=== PATIENT | male | born 1960 | race Caucasian/White ===

== ENCOUNTER 2020-03-19 11:23 | Outpatient (CLI) | payer OTHER ==
[2020-03-20 08:46] LABS: HEPATITIS C ANTIBODY NON-REACTIVE (NON-REACTIVE)
== END 2020-03-19 11:24 | disposition home or self-care (01) ==
LOC: LAB.S 11:23
PROVIDERS: ATTEND Internal Medicine
DX: Z13.1 Encounter for screening for diabetes mellitus (principal); Z11.59 Encounter for screening for other viral diseases
CPT/HCPCS: 36415; 83036; 86803

== ENCOUNTER 2020-10-10 10:51 | Outpatient (CLI) | payer OTHER ==
[2020-10-10 15:14] LABS: BASOPHILS # (AUTO) 0.2 10^3/uL (0.0-0.1); EOSINOPHILS # (AUTO) 0.4 10^3/uL (0.0-0.7); EOSINOPHILS % (AUTO) 4.4 %; HCT - HEMATOCRIT 41.1 % (42.0-52.0); HGB - HEMOGLOBIN 13.8 g/dL (14.0-18.0); LYMPHOCYTES # (AUTO) 2.9 10^3/uL (1.5-3.5); LYMPHOCYTES % (AUTO) 35.6 %; MEAN CORPUSCULAR HEMOGLOBIN 31.7 pg (27.0-31.0); MEAN CORPUSCULAR HGB CONC 33.6 g/dL (32.0-36.0); MEAN CORPUSCULAR VOLUME 94.3 fL (80.0-94.0); MEAN PLATELET VOLUME 12.4 fL (7.4-11.4); MONOCYTES % (AUTO) 12.8 %; NEUTROPHILS # (AUTO) 3.7 10^3/uL (1.5-6.6); NEUTROPHILS % (AUTO) 45.1 %; PLT - PLATELET COUNT 257 10^3/uL (130-450); RED BLOOD COUNT 4.36 10^6/uL (4.70-6.10); RED CELL DISTRIBUTION WIDTH 12.8 % (12.0-15.0); WHITE BLOOD COUNT 8.1 x10^3/uL (4.8-10.8)
== END 2020-10-10 10:52 | disposition home or self-care (01) ==
LOC: LAB.S 10:51
PROVIDERS: ATTEND Internal Medicine
DX: K21.9 Gastro-esophageal reflux disease without esophagitis (principal)
CPT/HCPCS: 36415; 85025

== ENCOUNTER 2021-02-19 10:33 | Outpatient (CLI) | payer OTHER ==
[2021-02-19 15:34] LABS: CHOL/HDL RATIO 2.7 (<5.0); CHOLESTEROL 191 mg/dL; HDL CHOLESTEROL 71 mg/dL; LDL CHOLESTEROL,CALCULATED 100 mg/dL; LDL/HDL RATIO 1.4 (<3.6); TRIGLYCERIDES 98 mg/dL; VLDL CHOLESTEROL 20 mg/dL
[2021-02-19 21:04] LABS: ESTIMATED AVERAGE GLUCOSE 103 mg/dL (70-100); HEMOGLOBIN A1c% 5.2 % (4.27-6.07)
== END 2021-02-19 10:34 | disposition home or self-care (01) ==
LOC: LAB.S 10:33
PROVIDERS: ATTEND Internal Medicine
DX: Z13.1 Encounter for screening for diabetes mellitus (principal); Z13.220 Encounter for screening for lipoid disorders
CPT/HCPCS: 36415; 80061; 83036; 83721

== ENCOUNTER 2022-02-04 09:40 | Outpatient (CLI) | payer OTHER ==
[2022-02-04 14:33] LABS: BASOPHILS # (AUTO) 0.2 10^3/uL (0.0-0.1); BASOPHILS % (AUTO) 2.7 %; EOSINOPHILS # (AUTO) 0.6 10^3/uL (0.0-0.7); EOSINOPHILS % (AUTO) 9.3 %; HCT - HEMATOCRIT 43.6 % (42.0-52.0); HGB - HEMOGLOBIN 14.7 g/dL (14.0-18.0); LYMPHOCYTES # (AUTO) 2.8 10^3/uL (1.5-3.5); LYMPHOCYTES % (AUTO) 42.5 %; MEAN CORPUSCULAR HEMOGLOBIN 31.3 pg (27.0-31.0); MEAN CORPUSCULAR HGB CONC 33.7 g/dL (32.0-36.0); MEAN CORPUSCULAR VOLUME 92.8 fL (80.0-94.0); MEAN PLATELET VOLUME 12.2 fL (7.4-11.4); MONOCYTES # (AUTO) 0.9 10^3/uL (0.0-1.0); MONOCYTES % (AUTO) 12.9 %; NEUTROPHILS # (AUTO) 2.1 10^3/uL (1.5-6.6); NEUTROPHILS % (AUTO) 32.4 %; PLT - PLATELET COUNT 300 10^3/uL (130-450); RED CELL DISTRIBUTION WIDTH 12.4 % (12.0-15.0); WHITE BLOOD COUNT 6.6 x10^3/uL (4.8-10.8)
[2022-02-04 15:20] LABS: ALBUMIN 4.2 g/dL (3.2-5.5); ALBUMIN/GLOBULIN RATIO 1.4 (1.0-2.2); BILIRUBIN,TOTAL 1.1 mg/dL (0.2-1.0); CALCIUM 9.2 mg/dL (8.5-10.3); CREATININE 1.1 mg/dL (0.6-1.2); TOTAL PROTEIN 7.3 g/dL (6.7-8.2)
== END 2022-02-04 09:41 | disposition home or self-care (01) ==
LOC: LAB.S 09:40
PROVIDERS: ATTEND Internal Medicine
DX: R10.9 Unspecified abdominal pain (principal); R11.10 Vomiting, unspecified; K59.00 Constipation, unspecified; A05.9 Bacterial foodborne intoxication, unspecified
CPT/HCPCS: 36415; 80053; 83630; 85025; 87045; 87046; 87427

== ENCOUNTER 2022-02-05 08:00 | Outpatient (CLI) | payer OTHER | END 2022-02-05 23:59 | disposition home or self-care (01) | LOC: LAB.R 08:00 | PROVIDERS: ATTEND Internal Medicine | DX: A05.9 Bacterial foodborne intoxication, unspecified (principal); R10.9 Unspecified abdominal pain; R11.10 Vomiting, unspecified; K59.00 Constipation, unspecified | CPT/HCPCS: 83630 ==

== ENCOUNTER 2022-03-24 22:15 | Emergency (ER) | payer OTHER ==
[2022-03-24] MEDS ORDERED: SODIUM CHLORIDE 0.9% 1,000 ML IV STA (22:47)
[2022-03-24] MEDS ORDERED: ONDANSETRON 4 MG/2 ML VIAL IVP STA (22:47)
--- NOTE | 2022-03-24 22:50 | ED Physician Documentation ---
History of Present Illness - Stated complaint Stated Complaint: VOMIT/STOMACH PAIN - Chief complaint Chief Complaint: Abd Pain - History obtained from History obtained from: Patient - Additonal information Additional information: The patient comes to the emergency department with chief complaint of mid abdominal pain that started this afternoon. He states is just progressively worsened over the course of the evening and that he then began vomiting. The patient has a history of a traumatic splenic rupture and subsequent splenectomy, and has had a bowel obstruction once before, a few decades ago. He states he has had no further trouble with his surgical site or with obstruction since, but has not passed gas today and was wondering if he might have a bowel obstruction again. The patient did have a fairly normal bowel movement this morning. He states that he woke up feeling fine and even went to the gym and did a workout earlier in the day. No one else has been sick at home. The patient states he had a similar episode a couple of months ago and his doctor felt that this was most likely a viral illness. Patient denies any other complaints at this time. He states his pain is about a 4 out of 10 and is worse with certain movements. No urinary symptoms. No measured fevers and in fact, the patient states he measured a temperature couple of hours ago and it was 98. No respiratory symptoms. The patient is otherwise fairly healthy. Review of Systems Ten Systems: 10 systems reviewed and negative Constitutional: reports: Reviewed and negative Eyes: reports: Reviewed and negative Ears: reports: Reviewed and negative Nose: reports: Reviewed and negative Throat: reports: Reviewed and negative Cardiac: reports: Reviewed and negative Respiratory: reports: Reviewed and negative GI: reports: Abdominal Pain, Nausea, Vomiting : reports: Reviewed and negative Skin: reports: Reviewed and negative Musculoskeletal: reports: Reviewed and negative Neurologic: reports: Reviewed and negative Psychiatric: reports: Reviewed and negative Endocrine: reports: Reviewed and negative Immunocompromised: reports: Reviewed and negative PD PAST MEDICAL HISTORY - Present Medications Home Medications: Ambulatory Orders Medication Instructions Recorded Confirmed Pantoprazole [Protonix] 0 mg 03/24/22 HYDROcod/ACETAM 5/325 [[place] 5/325] 1 - 2 tablet PO Q6H PRN #14 tablet 03/25/22 Ondansetron Odt [Zofran] 4 mg TL Q6H PRN #10 tablet 03/25/22 - Allergies Allergies/Adverse Reactions: Allergies Allergy/AdvReac Type Severity Reaction Status Date / Time No Known Drug Allergies Allergy Verified 03/24/22 22:23 PD ED PE NORMAL - Vitals Vital signs reviewed: Yes - General General: Alert and oriented X 3, No acute distress, Well developed/nourished - HEENT HEENT: Atraumatic, PERRL, EOMI, Moist mucous membranes - Neck Neck: Supple, no meningeal sign - Cardiac Cardiac: RRR, No murmur, Strong equal pulses - Respiratory Respiratory: No respiratory distress, Clear bilaterally - Abdomen Abdomen: Soft, Non distended, Other (Mild mid- and lower abdominal tenderness without rebound or guarding.) - Derm Derm: Warm and dry - Extremities Extremities: No deformity - Neuro Neuro: Alert and oriented X 3 - Psych Psych: Normal mood, Normal affect Results - Vitals Vitals: Vital Signs - 24 hr 03/24/22 03/24/22 03/25/22 22:17 22:23 00:46 Temperature 36 C L 36.5 C Heart Rate 65 65 62 Respiratory 18 18 14 Rate Blood Pressure 144/84 H 144/84 H 135/81 H O2 Saturation 97 97 96 03/25/22 01:30 Temperature Heart Rate 59 L Respiratory 12 Rate Blood Pressure 122/84 H O2 Saturation 97 Oxygen O2 Source Room air - Labs Labs: Laboratory Tests 03/24/22 03/24/22 22:55 23:43 WBC 13.8 H RBC 4.63 L Hgb 14.2 Hct 41.6 L MCV 89.8 MCH 30.7 MCHC 34.1 RDW 12.5 Plt Count 259 MPV 12.0 H Neut # (Auto) Not Reportable Lymph # (Auto) Not Reportable [place] # (Auto) Not Reportable Eos # (Auto) Not Reportable Baso # (Auto) Not Reportable Absolute Nucleated RBC Not Reportable Total Counted 100 Band Neuts % (Manual) 0 Abnorm Lymph % (Manual) 0 Nucleated RBC % Not Reportable Neutrophils # (Manual) 9.9 H Lymphocytes # (Manual) 2.5 Monocytes # (Manual) 0.8 Eosinophils # (Manual) 0.4 Basophils # (Manual) 0.1 Differential Comment MANUAL DIFFERENTIAL WBC Morphology NORMAL APPEARANCE Platelet Estimate NORMAL (130-450,000) Platelet Morphology NORMAL APPEARANCE RBC Morph Micro Appear 1+ ACANTHOCYTES Sodium 136 Potassium 3.7 Chloride 105 Carbon Dioxide 24 Anion Gap 7.0 BUN 17 Creatinine 1.0 Estimated GFR (MDRD) 76 L Glucose 117 H Calcium 8.8 Total Bilirubin 0.8 AST 16 ALT 12 Alkaline Phosphatase 52 Total Protein 6.6 L Albumin 3.7 Globulin 2.9 Albumin/Globulin Ratio 1.3 Lipase 37 - Rads (name of study) CT abdomen and pelvis Radiology: Final report received, EMP read indepedently, See rad report (Diverticuli without diverticulitis. Enteritis.) PD MEDICAL DECISION MAKING - ED course Complexity details: reviewed results, re-evaluated patient, considered differential, d/w patient ED course: The patient declined analgesia initially in the emergency department. He was treated symptomatically with IV fluids and Zofran, and worked up with labs and ultimately, CT scan of the abdomen pelvis. Laboratory studies showed mild elevation in his white blood cell count. CT scan of the abdomen and pelvis showed findings consistent with enteritis but no evidence of obstruction. Patient also was found to have diverticuli without inflammation. I reevaluated the patient was found to be feeling much better after fluids and Zofran. I felt he was stable for discharge home. He has been given a prepack of Zofran from the ED, as well as prescriptions for Zofran and some Vicodin. We have discussed the usual indications for return. Departure - Departure Disposition: 01 Home, Self Care Clinical Impression: Gastroenteritis Condition: Stable Instructions: ED Gastroenteritis Viral Prescriptions: HYDROcod/ACETAM 5/325 [[place] 5/325] 1 - 2 tablet PO Q6H PRN #14 tablet PRN Reason: Pain Ondansetron Odt [Zofran] 4 mg TL Q6H PRN #10 tablet PRN Reason: Nausea / Vomiting Comments: Your labs overall look fairly good. You have a mildly elevated white blood cell count, which reflects the viral illness you have and the physical stress of vomiting. Your CT scan shows findings consistent with a viral gastroenteritis, but nothing indicating anything more serious than that. Prescriptions for nausea and pain medication have been electronically transmitted to the [facility] and [facility]. Please take the nausea medicine via prepack, as needed. This illness will be self-limited and expected to resolve on its own in the next several days. Please be sure to drink plenty of clear liquids and do not try to eat until your stomach is feeling significantly better. Discharge Date/Time: 03/25/22 01:41
[2022-03-24 23:07] LABS: BASOPHILS % (AUTO) 1.1 %; EOSINOPHILS % (AUTO) 1.6 %; HCT - HEMATOCRIT 41.6 % (42.0-52.0); HGB - HEMOGLOBIN 14.2 g/dL (14.0-18.0); MEAN CORPUSCULAR HEMOGLOBIN 30.7 pg (27.0-31.0); MEAN CORPUSCULAR HGB CONC 34.1 g/dL (32.0-36.0); MEAN CORPUSCULAR VOLUME 89.8 fL (80.0-94.0); MONOCYTES % (AUTO) 6.5 %; NEUTROPHILS % (AUTO) 75.6 %; PLT - PLATELET COUNT 259 10^3/uL (130-450); RED BLOOD COUNT 4.63 10^6/uL (4.70-6.10); RED CELL DISTRIBUTION WIDTH 12.5 % (12.0-15.0); WHITE BLOOD COUNT 13.8 x10^3/uL (4.8-10.8)
[2022-03-24 23:13] LABS: ABNORMAL LYMPHS % (MANUAL) 0 %; BAND NEUTROPHILS % (MANUAL) 0 %
[2022-03-24 23:37] LABS: BASOPHILS # (MANUAL) 0.1 10^3/uL (0-0.1); BASOPHILS % (MANUAL) 1 %; EOSINOPHILS # (MANUAL) 0.4 10^3/uL (0-0.7); LYMPHOCYTES # (MANUAL) 2.5 10^3/uL (1.5-3.5); LYMPHOCYTES % (MANUAL) 18 %; MONOCYTES # (MANUAL) 0.8 10^3/uL (0.0-1.0); NEUTROPHILS # (MANUAL) 9.9 10^3/uL (1.5-6.6)
[2022-03-24 23:38] LABS: DIFFERENTIAL COMMENT MANUAL DIFFERENTIAL; PLATELET ESTIMATE, MANUAL NORMAL (130-450,000) (NORMAL); PLATELET MORPHOLOGY NORMAL APPEARANCE (NORMAL); RBC MORPHOLOGY (MULTIPLE) 1+ ACANTHOCYTES (NORMAL); WBC MORPHOLOGY (MULTIPLE) NORMAL APPEARANCE (NORMAL)
[2022-03-25 00:03] LABS: ALBUMIN 3.7 g/dL (3.2-5.5); ALBUMIN/GLOBULIN RATIO 1.3 (1.0-2.2); BILIRUBIN,TOTAL 0.8 mg/dL (0.2-1.0); CALCIUM 8.8 mg/dL (8.5-10.3); POTASSIUM 3.7 mmol/L (3.5-5.0); TOTAL PROTEIN 6.6 g/dL (6.7-8.2)
[2022-03-25] MEDS ORDERED: iohexoL-300 100 ML VIAL ONE (00:11)
[2022-03-25] MEDS ORDERED: iohexoL-300 100 ML VIAL IVP ONE (00:43)
--- NOTE | 2022-03-25 01:12 | CT Report ---
PROCEDURE: ABDOMEN/PELVIS W INDICATIONS: worsening mid-abd pain/nausea, h/o splenectomy CONTRAST: Omni 300 100ml TECHNIQUE: After the administration of intravenous contrast, 5 mm thick sections acquired from the diaphragms to the symphysis. 5 mm thick coronal and sagittal reformats were acquired. For radiation dose reducti on, the following was used: automated exposure control, adjustment of mA and/or kV according to deepthi ent size. COMPARISON: None. FINDINGS: Image quality: Excellent. Lung bases:There is minimal dependent atelectasis. Heart: Heart is normal in size. ABDOMEN: Liver: No mass lesion. Gallbladder: Within normal limits without calcified gallstones. Biliary ducts: No biliary ductal dilatation. Pancreas: Unremarkable. Spleen:Surgically absent. Adrenal Glands: No adrenal nodules. Kidneys and Ureters: No hydronephrosis. Stomach and Bowel: There are a few fluid distended loops of small bowel within the right mid abdomen which are nonspecific and may reflect a mild gastroenteritis. No evidence of bowel obstruction. No e vidence of appendicitis. There is colonic diverticulosis without acute diverticulitis. Moderate stool distention in the rectosigmoid colon may reflect impaction or constipation. Peritoneum: No abnormal intraperitoneal fluid. No free air. Ventral Wall: No hernia. Abdominal Nodes: No retroperitoneal or mesenteric adenopathy by size criteria. Vessels: Aorta and inferior vena cava are normal in size. PELVIS: Pelvic Organs: Unremarkable. Bladder: Unremarkable. Pelvic Nodes: No enlarged lymph nodes. Miscellaneous: No inguinal hernias are seen. Bones: Visualized osseous structures demonstrate no suspicious focal lesions. IMPRESSION: 1. Mild fluid distention of a few loops of small bowel within the right mid abdomen. The findings are nonspecific and may reflect a mild gastroenteritis. No definite bowel obstruction. 2. Colonic diverticulosis without acute diverticulitis. Reviewed by: Rogelio Gonzalez MD on 03/25/2022 1:11 AM PDT Approved by: Rogelio Gonzalez MD on 03/25/2022 1:11 AM PDT Station ID: [id number]
[2022-03-25 01:33] VITALS: BP 122/84
[2022-03-25] MEDS ORDERED: ONDANSETRON ODT 4 MG Prepack 2 TL PRN (01:33)
== END 2022-03-25 01:41 | disposition home or self-care (01) ==
LOC: ED 22:15
DX: A08.4 Viral intestinal infection, unspecified (principal)
CPT/HCPCS: 36415; 74177; 80053; 83690; 85025; 96374; 99284; Q9967